=== PATIENT | female | born 1940 | race Caucasian/White ===

== ENCOUNTER 2023-07-03 17:52 | Emergency (ER) | payer MEDICARE ==
[~2023-07-03] VITALS: Ht 160 cm; Wt 60.0 kg
[2023-07-03 17:58] VITALS: BP 184/96; PULSE 71; O2SAT 98
[2023-07-03] MEDS: ondansetron/PF 4mg/2ml inj IM ONE (18:32)
[2023-07-03] MEDS: traMADol 50MG tablet PO ONE ×3 (19:02→19:24)
[2023-07-03 19:26] VITALS: RESP 13
[2023-07-03] MEDS ORDERED: TRAM1TAB7 PO (20:04)
[2023-07-03] MEDS ORDERED: ONDA4TAB12 PO (20:06)
[2023-07-03 20:16] VITALS: TEMP 97.3
== END 2023-07-03 20:19 | disposition home or self-care (01) ==
LOC: ER 17:55
DX: R07.81 Pleurodynia (principal); R19.7 Diarrhea, unspecified; K59.00 Constipation, unspecified; R11.2 Nausea with vomiting, unspecified; G47.62 Sleep related leg cramps; Z88.8 Allergy status to other drugs, medicaments and biological substances; Z79.899 Other long term (current) drug therapy
CPT/HCPCS: 71101; 96372; 99283; J2405